=== PATIENT | female | born 1995 | race Two or more races ===

== ENCOUNTER → 2017-03-07 | Day surgery (SDC) | payer OTHER ==
[~2017-03-07] VITALS: Ht 180.3 cm; Wt 84.8 kg
[~2017-03-07] MED LIST: BUPIVACAINE HCL 0.25% 30 ML VIAL As Ordered ONE; ESTR125TA; ESTR125TA PO; GLYCOPYRROLATE INJ 0.2 MG/ML 2 ML VIAL As Ordered ONE; IBUP600T26 PO; KETOROLAC 60 MG/2 ML VIAL (J1885) As Ordered ONE; LIDOCAINE 2% INJ 100 MG/5 ML SDV (FOR ANES.) As Ordered ONE; LORA10TA2; LORA10TA2 PO; LR 1,000 ML IV ONE; LR 1,000 ML IV SCH; MEDR10TA PO; MELA5TAB14 PO; METOCLOPRAMIDE INJ 10MG/2ML VIAL (J2765) As Ordered ONE; MIDAZOLAM INJ 2 MG/2 ML VIAL (J2250) As Ordered ONE; MORPHINE 10 MG/ML 1ML VIAL As Ordered ONE; NEOSTIGMINE 1MG/ML 5 ML SYRINGE (J2710) As Ordered ONE; ONDANSETRON 4MG/2ML VIAL (J2405) As Ordered ONE; ONDANSETRON 4MG/2ML VIAL (J2405) IV PRN; OXYC1TAB23 PO; OXYCODONE-ACET; PROPOFOL 500 MG/50 ML VIAL As Ordered ONE; ROCURONIUM BROMIDE 50 MG/5 ML VIAL As Ordered ONE; dexameTHASONE 4 MG/ML 1ML VIAL (J1100) As Ordered ONE; fentaNYL 100 MCG/2 ML INJECTION (J3010) As Ordered ONE
[2017-03-07 08:03] LABS: CONTROL LINE HCG INT CTR LINE PRESENT
[2017-03-07] MEDS: fentaNYL 100 MCG/2 ML INJECTION (J3010) IV PRN ×4 (12:13→12:35)
[2017-03-07] MEDS: MORPHINE 2 MG/ML 1ML SYRINGE IV PRN ×2 (12:49→12:55)
[2017-03-07 15:30] VITALS: BP 126/62
--- NOTE | 2017-03-08 16:23 | RO ---
DATE OF PROCEDURE: 03/07/2017 PREOPERATIVE DIAGNOSIS: Uterine septum with one early miscarriage. POSTOPERATIVE DIAGNOSES: 1. Uterine septum with one early miscarriage. 2. Scant endometriosis. OPERATION PERFORMED: Diagnostic laparoscopy with operative hysteroscopy and resection of uterine septum. 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 INDICATION FOR OPERATION: Ran is a 21-year-old, G1, P0-0-1-0, who experienced a miscarriage and underwent evaluation, was found to have a uterine septum, and desired resection of the septum after counseling to increase her chances of having a future viable . MATERIAL FORWARDED TO THE LABORATORY: None. DESCRIPTION OF FINDINGS: Laparoscopic findings included normal appearing ovaries and fallopian tubes. Uterine contour was slightly irregular. There was a small white band in the center of the uterus, and the dome was not as prominent as usual, slightly flattened. There were a couple endometrial implants in the left ovarian fossa. Otherwise, posterior cul-de-sac, anterior cul-de-sac were normal in appearance. Appendix not visualized, but liver edge was normal in appearance. Hysteroscopic findings included a uterine septum that went from the uterine fundus all the way to approximately 2 cm proximal to the cervix. INFECTION CLASSIFICATION: II. ESTIMATED BLOOD LOSS: 20 mL. INTRAVENOUS (IV) FLUIDS: 1200 mL. URINE OUTPUT: 200 mL via in-and-out catheterization. FLUID DEFICIT: Approximately 500 mL. DESCRIPTION OF OPERATION: After obtaining informed consent, Ran was taken to the operating room. General endotracheal anesthesia was established, and she was placed in low lithotomy position. She was prepped and draped in the usual sterile fashion. A 5 mm incision was made in the infraumbilical fold with a scalpel. Vaishali clamp was used to spread the subcutaneous tissue. Lower abdominal wall was manually grabbed and lifted up, and an Optiview trocar was placed at a 90-degree angle. The laparoscope was advanced through the port, and intra-abdominal placement was confirmed. Continuous flow carbon dioxide began to establish a pneumoperitoneum at 15 mmHg pressure. At that point, we did a pelvic and abdominal survey, beginning in the anterior cul-de-sac and the anterior portion of the uterus, which were normal in appearance. The uterus itself, as described, was slightly flattened with a white band in the center, indicating likely Mullerian defect but, notably, she did not have a bicornuate uterus. Left and right fallopian tubes, round ligaments, broad ligaments, and ovaries were observed with normal appearance. Posterior cul-de- sac was also observed to be normal. There was just a small amount of endometriosis noted in the left ovarian fossa. Survey of the upper abdomen revealed a normal liver edge. At that point, we turned our attention to the hysteroscopic portion of the procedure and we placed a speculum within the vagina to visualize the cervix, which we grasped with a single-tooth tenaculum. Uterus sounded to 8 cm. Cervix was sequentially dilated using Hood dilators. Hysteroscopic camera was introduced into the uterus, where the uterine septum was easily visualized. We could take the camera up on either side of the septum, and we did visualize both of the ostia. Uterine lining was well primed. There was no evidence of any polyps or fibroids within the uterus. At that point, we introduced hysteroscopic scissors and began resecting the uterine septum in the avascular plane. Notably, the visualization was difficult because of fluid/equipment issues. Her anatomy was otherwise as described; but given the difficulties with fluid loss through the cervix as well as struggling with the equipment to get an adequate flow to get adequate distension to visualize the septum, we were able to get the majority of the septum resected, but there was still a small amount near the fundus that we could not continue to resect given inadequate visualization after many attempted equipment alterations. We then inserted a Gupta into the uterus and distended the Gupta approximately 6 mL to assist with the opening of the cavity. That Gupta catheter was removed, and we did do an in-and-out catheterization of the bladder at that point with 200 mL of clear yellow urine noted. The tenaculum was removed as well as the speculum with no further bleeding noted. Vaginal sweep revealed nothing retained in the vagina. We returned our attention to the abdomen and performed another laparoscopic inspection of the pelvis. There was very scant fluid noted in the cul-de-sac resultant from the hysteroscopy, and there were no perforations of the uterus noted. At that point, the pneumoperitoneum was released and the infraumbilical port was removed. The incision was reapproximated using #4-0 Monocryl and Dermabond. All counts were correct times two. Patient tolerated the procedure well. She was awakened from general anesthesia and taken to the recovery room in good condition. TRISTEN
== END | disposition home or self-care (01) ==
LOC: M SDC 07:10
PROVIDERS: ATTEND Obstetrics & Gynecology
DX: Q51.2 Other doubling of uterus (principal); N80.9 Endometriosis, unspecified; Z87.59 Personal history of other complications of pregnancy, childbirth and the puerperium; M54.5 Low back pain; G89.29 Other chronic pain; F41.9 Anxiety disorder, unspecified; F32.9 Major depressive disorder, single episode, unspecified; F43.10 Post-traumatic stress disorder, unspecified; Z91.040 Latex allergy status
CPT/HCPCS: 36415; 49320; 58560; 84703; 85014; 85018; 86850; 86900; 86901; J1100; J1885; J2250; J2405; J2710; J2765; J3010

== ENCOUNTER 2017-03-11 23:51 | Observation (INO) | payer OTHER ==
[~2017-03-11] VITALS: Ht 180.3 cm; Wt 84.8 kg
[~2017-03-11 23:51] MED LIST changes: -BUPIVACAINE HCL 0.25% 30 ML VIAL As Ordered ONE; -ESTR125TA; -ESTR125TA PO; -GLYCOPYRROLATE INJ 0.2 MG/ML 2 ML VIAL As Ordered ONE; -KETOROLAC 60 MG/2 ML VIAL (J1885) As Ordered ONE; -LIDOCAINE 2% INJ 100 MG/5 ML SDV (FOR ANES.) As Ordered ONE; -LORA10TA2; -LORA10TA2 PO; -LR 1,000 ML IV ONE; -LR 1,000 ML IV SCH; -MEDR10TA PO; -METOCLOPRAMIDE INJ 10MG/2ML VIAL (J2765) As Ordered ONE; -MIDAZOLAM INJ 2 MG/2 ML VIAL (J2250) As Ordered ONE; -MORPHINE 10 MG/ML 1ML VIAL As Ordered ONE; -NEOSTIGMINE 1MG/ML 5 ML SYRINGE (J2710) As Ordered ONE; -ONDANSETRON 4MG/2ML VIAL (J2405) As Ordered ONE; -ONDANSETRON 4MG/2ML VIAL (J2405) IV PRN; -OXYC1TAB23 PO; -OXYCODONE-ACET; -PROPOFOL 500 MG/50 ML VIAL As Ordered ONE; -ROCURONIUM BROMIDE 50 MG/5 ML VIAL As Ordered ONE; -dexameTHASONE 4 MG/ML 1ML VIAL (J1100) As Ordered ONE; -fentaNYL 100 MCG/2 ML INJECTION (J3010) As Ordered ONE
[2017-03-12] MEDS ORDERED: LORA10TA2 (00:03)
[2017-03-12] MEDS ORDERED: MEDR10TA PO (00:03)
[2017-03-12] MEDS ORDERED: ESTR125TA (00:03)
[2017-03-12] MEDS ORDERED: OXYCODONE-ACET (00:03)
[2017-03-12 00:39] LABS: BASO # 0.1 K/mm3 (0.0-0.2); BASO % 0.6 % (0.0-1.0); EOS # 0.2 K/mm3 (0.0-0.50); EOS % 2.3 % (0.0-3.0); LARGE UNSTAINED CELL # 0.1 K/mm3 (0.0-0.4); LARGE UNSTAINED CELL % 1.3 % (0.0-4.0); LYMPH # 2.1 K/mm3 (1.5-6.5); MEAN CORPUSCULAR HEMOGLOBIN 30.2 pg (27.0-33.0); MEAN CORPUSCULAR HGB CONC 33.2 g/dl (32.0-36.5); MEAN CORPUSCULAR VOLUME 91.1 fl (80.0-96.0); MONO # 0.4 K/mm3 (0.0-0.8); MONO % 3.9 % (0.0-5.0); NEUTROPHILS # 6.1 K/mm3 (1.8-7.7); NEUTROPHILS % 68.8 % (36.0-66.0); PLATELET COUNT, AUTOMATED 282 k/mm3 (150-450); RED CELL DISTRIBUTION WIDTH 12.6 % (11.5-14.5); WHITE BLOOD COUNT 8.9 K/mm3 (4.0-10.0)
[2017-03-12] MEDS ORDERED: NS 1,000 ML IV ONE (00:45)
[2017-03-12 00:56] LABS: CONTROL LINE HCG INT CTR LINE PRESENT
[2017-03-12 01:01] LABS: ANION GAP 6 MEQ/L (8-16); BLOOD UREA NITROGEN 15 MG/DL (7-18); CALCIUM LEVEL 9.2 MG/DL (8.5-10.1); CARBON DIOXIDE LEVEL 30 MEQ/L (21-32); CHLORIDE LEVEL 105 MEQ/L (98-107); CREATININE FOR GFR 0.76 MG/DL (0.55-1.02); GLOMERULAR FILTRATION RATE > 60.0 (>60); GLUCOSE, FASTING 101 MG/DL (70-105); POTASSIUM SERUM 4.3 MEQ/L (3.5-5.1); SODIUM LEVEL 141 MEQ/L (136-145)
--- NOTE | 2017-03-12 01:30 | REPUSA ---
CLINICAL HISTORY: Septated uterus. Bleeding after removal of the septum. TECHNIQUE: Realtime sonographic images were obtained in multiple projections via TA approach. COMMENTS: The uterus is anteverted measuring 6.1x2.7x6.2 cm. The endometrial echo pattern is within normal limi ts measuring 3.1 mm on the right side and 5.3 mm on the left side . There is no evidence of free fluid within the pelvic cul-de-sac. The right ovary measures 2.6x1.9x2.1 cm and the left ovary was not visualized. There is no evidence for abnormal vascularity. IMPRESSION: Septated uterus. Recent removal of a uterine septum. No acute abnormalities seen. Thank you for your kind referral of this patient.
[2017-03-12 01:39] LABS: INR 0.87
[2017-03-12] MEDS ORDERED: ESTR125TA PO (01:56)
[2017-03-12] MEDS ORDERED: OXYC1TAB23 PO (01:56)
[2017-03-12] MEDS ORDERED: LORA10TA2 PO (01:57)
[2017-03-12 04:15] VITALS: BP 122/59
[2017-03-12] MEDS ORDERED: NS 1,000 ML IV SCH (05:45)
[2017-03-12 06:19] LABS: MEAN CORPUSCULAR HEMOGLOBIN 30.8 pg (27.0-33.0); MEAN CORPUSCULAR HGB CONC 34.4 g/dl (32.0-36.5); MEAN CORPUSCULAR VOLUME 89.6 fl (80.0-96.0); RED CELL DISTRIBUTION WIDTH 12.6 % (11.5-14.5); WHITE BLOOD COUNT 8.9 K/mm3 (4.0-10.0)
[2017-03-12 07:30] VITALS: BP 127/61
--- NOTE | 2017-03-12 18:11 | DSES ---
DATE OF ADMISSION: 03/12/2017 DATE OF DISCHARGE: 03/12/2017 A 21-year-old 1, para 0, aborta 1, history of laparoscopy and hysteroscopy, resection of uterine septum 03/07/2017 was seen in the emergency department (ED) this evening because of massive bleeding and had orthostatic postural drop changes. Called by the ED physician regarding the bleeding and the orthostatic postural drop changes. We elected to monitor her over the next several hours. Blood pressure presently is 118/66, respirations 18, temperature 98.3 and pulse rate is 82. Her vital signs at the postural drop 111/73, respirations 18, pulse 67. Her admitting hemoglobin was 14.2, hematocrit 42.8, platelets 282. White count was 8.9. After monitoring her several hours, her hemoglobin was 12.4, hematocrit 36.0, platelets 244. She did not continue to bleed. We bolused her with some intravenous (IV) fluids. She felt significantly better and the rest the evaluation was unremarkable. Electrolytes were normal. Coagulation profile was normal. On physical examination now she does not appear in distress. She is pale. Moist mucous membranes. She is alert, orientated. There is no vaginal lost. She is normocephalic, atraumatic. Neck: Full range of motion. Pupils equal and reactive to light. Chest is clear bilaterally to bases. No costovertebral angle (CVA) tenderness. Four quadrant bowel sounds and uterus is normal-sized. No rashes, lesions or pruritus. No arthralgia, myalgia. No complaint of cough, wheeze, shortness of breath, dyspnea on exertion. She has no chest pain. She is not bleeding. Neurologically complete. No incontinency, urgency or frequency. No nausea, vomiting, diarrhea or constipation. GYNECOLOGICAL HISTORY: Is noted. She had a uterine septum which was removed. She has had a previous spontaneous miscarriage. PAST MEDICAL HISTORY: Unremarkable. FAMILY HISTORY: Noncontributory. Does not smoke or drink. She does not abuse drugs. She is . There is no domestic violence. 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 IN SUMMARY: We have a lady who had a postoperative bleed which caused significant postural drop, resuscitated and no more bleeding. Was discharged with precautions. Has an appointment on 03/24/[address] Hill. Told to maintain that appointment. Discharged improved.
== END 2017-03-12 07:45 | disposition home or self-care (01) ==
LOC: M ED 03-12 01:11 → M ED INP 03-12 01:12 → M PED 03-12 04:16
PROVIDERS: ADMIT Obstetrics & Gynecology; ATTEND Obstetrics & Gynecology
DX: N99.820 Postprocedural hemorrhage of a genitourinary system organ or structure following a genitourinary system procedure (principal); I95.1 Orthostatic hypotension